=== PATIENT | male | born 1995 | race Caucasian/White ===

== ENCOUNTER 2018-08-10 16:52 | Emergency (ER) | payer OTHER ==
--- NOTE | 2018-08-10 17:21 | EDPHY ---
General Time Seen by Provider: 08/10/18 17:15 Narrative: CLINICAL IMPRESSION: Concussion ASSESSMENT/PLAN: Patient is a 23-year-old male who presents to the emergency department with nausea, headache and dizziness after sustaining a head injury last evening. Patient is well appearing and in no acute distress, complains of mild discomfort at site of impact. The fall was witnessed and there was no loss of consciousness. Patient is afebrile and nontoxic-appearing, he is in no acute distress on arrival. His neurological exam is grossly normal with no focal deficit. Negative test of skew, no truncal or gait ataxia. He has no new focal neurologic deficit, there has been no altered mentation, there are no clinical findings to suggest skull fracture, there is no known bleeding disorder , there has been no vomiting and no posttraumatic seizure. Discussed CT for further evaluation however patient refuses at this time. The patient was observed for a period of time, his neurological exam remained grossly normal with no focal deficit and he was at his baseline in regards to his mental status. The patient had no further concerns. The patient is well established with his PCP and will schedule follow-up appointment for Saturday for repeat examination. I have also provided a referral for concussion specialist should he have ongoing symptoms. Strict return precautions were discussed- he will return to the emergency department for altered mentation, lethargy, vomiting, seizure, abnormal movements or for any other concerning symptom. Patient verbalizes understanding and is in agreement with this plan. Clinical management tool reviewed. Patient with no new focal neurologic deficit , no altered mentation, no suspicion of skull fracture, clinically not intoxicated, no anticoagulation or antiplatelet therapy, no bleeding disorder, no vomiting, no amnesia, no posttraumatic seizure. Low clinical suspicion for serious brain injury. CT considered but not indicated at this time. DIFFERENTIAL DX: Head injury including but not limited to concussion, skull fracture, intraparenchymal contusion, subarachnoid, subdural and epidural hematoma. ED COURSE: 2: Case discussed with Dr. Mendoza 1827: On reexamination the patient's neurological exam remained grossly normal with no focal deficit. Discussed CT for further evaluation, patient refuses at this time and prefers conservative management and close follow-up. CHIEF COMPLAINT: Head injury, Dizzy, headache, nausea HPI: Patient is a 23-year-old male with a history of bipolar disorder who presents to the emergency department after sustaining a head injury last evening complaining of headache, dizziness and nausea. Patient reports last evening he was drinking alcohol, he took an UBER home at about 12 15, when he was walking back to his residence he tripped and fell causing him to hit the back of his head. This was witnessed by a friend of his, there was no loss of consciousness. Patient slept through the night and woke up this morning feeling what he thought was hung over. As the day progressed he continued to feel dizzy, nauseous with a low-grade headache. Patient is not on any aspirin or anticoagulation, he has no bleeding disorder. He denies any ataxia, focal weakness or posttraumatic seizure. He has had no vomiting. He describes his headache as mild and posterior at the site of presumed impact. When he changes position he feels mildly dizzy and has had a low-grade nausea throughout the day. Patient has a history of multiple concussions in the past, feel similar to when he has had a concussion. PMH: Bipolar Pertinent Past Surgical History: Denies Family History: Noncontributory Social History: Occasional alcohol, occasional marijuana, denies cigarette smoking REVIEW OF SYSTEMS: All other systems negative Constitutional: No fever, no chills, appetite change. Eyes: No discharge, vision change ENT: No sore throat, congestion, ear pain. Cardiovascular: No chest pain, no palpitations. Respiratory: No cough, no shortness of breath. Gastrointestinal: Nausea. No abdominal pain, no vomiting, diarrhea. Genitourinary: No hematuria, dysuria, flank pain, pelvic pain Musculoskeletal: No back pain, joint swelling, joint pain, myalgias. Skin: No rashes, color change. Neurological: Headache, dizzy. No weakness. PHYSICAL EXAM: General Appearance: Well-developed, well-appearing and in no acute distress. HENT: Normocephalic, atraumatic. Patient with tenderness on the posterior crown, no abrasions, hematoma, crepitus or bony deformity. Bilateral external ears are normal. Bilateral tympanic membranes are normal with pearly weinstein reflex, no hemotympanum bilaterally. No Goodwin sign or raccoon eyes. Nares are clear, mucosa is pink. Oropharynx is clear, uvula is midline. There is no tonsillar enlargement or exudate. The dentition is normal. Eyes: PERRLA, EOMI intact without evidence of entrapment. Conjunctiva pink, no pallor or injection. Neck: Supple, nontender, no lymphadenopathy, no midline pain, FROM, no meningismus. Respiratory: There are no retractions, lungs are clear to auscultation. Cardiac: Regular rate and rhythm, no murmurs or gallops. Gastrointestinal: Abdomen is soft, nontender, bowel sounds normal, no masses/ hernia, no rigidity, guarding or focal peritoneal findings. Neurological: MENTAL STATUS: Patient is alert and oriented to person, place, time, and situation. Recent and remote memory are intact. Attention and concentration are normal. Found knowledge is appropriate to level of education. Mood and affect normal. SPEECH: Language including naming, repetition, comprehension, and spontaneous speech are normal. No dysarthria or dysphagia. CRANIAL NERVES: II: Visual díaz are full to confrontation. Vision is grossly intact. III, IV, : Pupils are equal, round, reactive to light. Extraocular eye movements are full and without nystagmus. V: Facial sensation is intact to touch symmetrically in all 3 divisions. VII: Face is symmetric at rest with no asymmetry of grimace or evidence of facial weakness. VIII: Hearing is intact bilaterally to finger rub. IX, X: Palate is midline and elevates symmetrically with intact cough/gag. XI: Sternocleidomastoid and trapezius strength is normal. XII: Tongue protrudes midline without atrophy or fasciculations. MOTOR: Normal bulk and tone symmetrically in the upper and lower extremities. Upper extremities: shoulder abduction, elbow flexion, elbow extension, flexion of fingers and finger abduction strength 5/5 bilaterally. Lower extremities: hip flexion, knee flexion and extension, plantar and dorsiflexion of foot, and great toe extension strength 5/5 bilaterally. No pronator drift. SENSORY: Sensation is intact to light touch and symmetric in the UE's in LE's bilaterally. Romberg is negative. COORDINATION: Fine motor and rapid alternating movements are normal. Finger to nose is normal bilaterally. [id number] is normal bilaterally. No abnormal movements noted. There is no tremor at rest or with posture or action. GAIT/STATION: Casual, straightforward gait is normal. Patient can walk on toes and on heels. No gait instability. Skin: Warm, dry, no rashes, no nodules on palpation. Musculoskeletal: Extremities are symmetrical, full range of motion, no tenderness, deformity, swelling, or erythema. Bilateral hips with ecchymosis, nontender, bilateral hips with full range of motion. Psychiatric: Patient is oriented X 3, there is no agitation. MEDICAL DECISION MAKING: Patient was seen independently. Secondary supervising physician at time of evaluation was Dr. Mendoza. Diagnosis: Concussion. New, requires workup Summary: See Assessment and Plan for summary of ED visit Clinical lab tests: Not applicable. Independent visualization of images, tracing, or specimens: Not applicable. Decision to obtain medical records or history from someone other than the patient: No Review / Summarize previous medical records: None available Discussed patient with another provider: Yes Patient Progress: Stable, discharged. - History Smoking Status: Current some day smoker - Objective Vital Signs: Initial Vital Signs Temperature (C) 36.8 C 08/10/18 16:57 Heart Rate 65 08/10/18 16:57 Respiratory Rate 16 08/10/18 16:57 Blood Pressure 134/82 H 08/10/18 16:57 O2 Sat (%) 99 08/10/18 16:57 O2 Delivery Mode Room Air Allergies/Adverse Reactions: No Known Allergies Allergy (Unverified 08/10/18 17:00) Home Medications: Medication Instructions Recorded [place] Aspartate 08/10/18 VYVANSE 08/10/18 Ziprasidone HCl 08/10/18 traZODone 08/10/18 Medications Given: Discontinued Medications Ibuprofen (Motrin) 400 mg PO EDNOW ONE Stop: 08/10/18 17:34 Last Admin: 08/10/18 17:47 Dose: 400 mg Ondansetron HCl (Zofran Odt) 4 mg PO EDNOW ONE Stop: 08/10/18 17:34 Last Admin: 08/10/18 17:47 Dose: 4 mg Departure - Departure Disposition: Home, Routine, Self-Care Clinical Impression: Concussion Qualifiers: Encounter type: initial encounter Loss of consciousness presence/duration: without LOC Qualified Code(s): S06.0X0A - Concussion without loss of consciousness, initial encounter Condition: Good Instructions: Concussion (ED) Additional Instructions: DISCHARGE INSTRUCTIONS FROM YOUR DOCTOR Thank you for visiting our emergency department today. Please keep in mind that discharge from the emergency department does not mean that there is nothing wrong - it simply means that we have not identified an emergency condition that requires further evaluation or treatment in the hospital. You should always plan to follow up with primary care for re-evaluation of your condition in the next 2-3 days. If you have been referred to a specialist, please call as soon as possible ( today or tomorrow) to schedule your follow up appointment at the appropriate time. For pain control: You may take Tylenol, I recommend 500-1000 mg every 6-8 hours as needed. Take with food and a full glass of water. Stop taking if this is upsetting her stomach. Do not exceed 4000]mg in a 24 hr period. You may also take ibuprofen, recommend 400 mg every 6 hr. Take with food and a full glass of water. Stop taking if this upsets her stomach. Do not exceed 2400 mg in a 24 hr period. GRADUAL [id number] PROTOCOL Patient must be symptom free for 24 hours before progressing to the next step. If patient has symptoms during Step's 2-6, stop activity and return previous step. Patient can not progress to next step unless current step can be completed with out any symptoms (ie headache, dizziness, confusion...) Bright lights, TV, computers, music, reading can trigger or worsen concussion symptoms thus should be avoided or used in moderation. Step 1. NO same day return to play, rest only , do not proceed to Step 2 until all symptoms have resolved Step 2. LIGHT aerobic exercise (ie walking, swimming or stationary cycling), while keeping intensity < 70% max heart rate Step 3. Sport-specific exercise (ie skating drills in ice hockey-no passing, running drills in soccer-no passing), NO HEAD IMPACT ACTIVITIES Step 4. NON-contact training, with progression to more complex drills (ie passing drills) NO HEAD IMPACT ACTIVITIES Step 5. Full-contact practice AFTER getting medical clearance Step 6. Return to game play This was based from: Consensus statement on concussion in sport: the 4th International Conference on Concussion in Sport held in [place], Apr 2012. Br J Sports MEd. 2013;47(5):250- 258 People present with illnesses and injuries in different ways, and it is always possible that we have missed something. You may always return for re-evaluation if symptoms worsen or if they are not improving or if you develop new/different symptoms. Again, thank you for choosing our emergency department. We hope that you feel better. Referrals: Randi Ramirez MD [Medical Doctor] - As per Instructions (If you continue to have symptoms, please call to schedule appointment with Dr. Ramirez) Stand Alone Forms: School Excuse
[2018-08-10] MEDS ORDERED: IBUPROFEN 200 MG TAB PO ONE (17:33)
[2018-08-10] MEDS ORDERED: ONDANSETRON DISINTEGRATING 4 MG TAB PO ONE (17:33)
[2018-08-10 18:46] VITALS: BP 131/79
== END 2018-08-10 18:46 | disposition home or self-care (01) ==
DX: S06.0X0A Concussion without loss of consciousness, initial encounter (principal); W19.XXXA Unspecified fall, initial encounter; Y92.9 Unspecified place or not applicable; Y99.9 Unspecified external cause status; Y93.9 Activity, unspecified